=== PATIENT | male | born 1970 | race Caucasian/White ===

== ENCOUNTER 2023-12-29 07:44 | Outpatient (OUT) | payer BC, SELFPAY ==
[2023-12-29 08:25] LABS: Basophils Absolute Auto 0.1 10^3/uL (0.0-0.1); Basophils Percent Auto 0.9 % (0.2-2.0); Eosinophils Absolute Auto 0.2 10^3/uL (0.0-0.7); Eosinophils Percent Auto 2.3 % (0.9-7.0); Hematocrit 48.7 % (42.0-54.0); Immature Granulocytes Abs Auto 0.05 10^3/uL (0.00-0.03); Immature Granulocytes Pct Auto 0.8 % (0.0-0.5); Lymphocytes Absolute Auto 1.6 10^3/uL (1.2-3.8); Lymphocytes Percent Auto 24.2 % (20.5-60.0); Mean Corpuscular HGB Conc 32.9 g/dL (29.9-35.2); Mean Corpuscular Hemoglobin 31.1 pg (25.9-34.0); Mean Corpuscular Volume 94.7 fL (80.0-94.0); Mean Platelet Volume 8.9 fL (9.5-13.5); Monocytes Absolute Auto 0.9 10^3/uL (0.3-0.8); Monocytes Percent Auto 12.9 % (1.7-12.0); Neutrophils Absolute Auto 3.9 10^3/uL (1.4-6.5); Neutrophils Percent Auto 58.9 % (43.0-75.0); Platelet Count 222 10^3/uL (150-450); Red Blood Count 5.14 10^6/uL (4.70-6.10); Red Cell Distribution Width 12.3 % (11.0-15.0); White Blood Count 6.6 10^3/uL (4.0-11.0)
[2023-12-29 08:54] LABS: Alanine Aminotransferase 32 U/L (16-63); Albumin Globulin Ratio 0.9; Albumin Level 3.4 g/dL (3.4-5.0); Alkaline Phosphatase 69 U/L (46-116); Anion Gap 8.9; Aspartate Amino Transferase 67 U/L (15-37); BUN Creatinine Ratio 19.8; Bilirubin Total 2.5 mg/dL (0.2-1.0); Calcium 8.6 mg/dL (8.5-10.1); Carbon Dioxide 29.4 mmol/L (21.0-32.0); Chloride 107 mmol/L (98-107); Chol HDL Ratio 3.7; Cholesterol 217 mg/dL (<=200); Estimated GFR (African America >60 (>=60); Estimated GFR (Non-African Ame >60 (>=60); Globulin 3.6 g/dL; Glucose 134 mg/dL (74-106); HDL Cholesterol 59 mg/dL (40-60); Potassium 4.3 mmol/L (3.5-5.1); Sodium 141 mmol/L (136-145); Triglycerides 57 mg/dL (<=150); VLDL CHOLESTEROL 11.4 mg/dL
[2023-12-29 09:18] LABS: Prostate Specific Antigen Scrn 2.24 ng/mL (<=4.00)
== END 2023-12-29 07:45 | disposition home or self-care (01) ==
LOC: LAB 07:48
PROVIDERS: PCP Internal Medicine; Visit Provider Internal Medicine
DX: Z00.00 Encounter for general adult medical examination without abnormal findings (principal)
CPT/HCPCS: 36415; 80053; 80061; 85025; G0103

== ENCOUNTER 2024-03-31 09:52 | Outpatient (OUT) | payer BC, SELFPAY ==
[2024-03-31 10:12] LABS: Basophils Absolute Auto 0.1 10^3/uL (0.0-0.1); Basophils Percent Auto 1.4 % (0.2-2.0); Eosinophils Absolute Auto 0.2 10^3/uL (0.0-0.7); Eosinophils Percent Auto 1.9 % (0.9-7.0); Hemoglobin 16.6 g/dL (14.0-18.0); Immature Granulocytes Pct Auto 1.3 % (0.0-0.5); Lymphocytes Absolute Auto 1.9 10^3/uL (1.2-3.8); Lymphocytes Percent Auto 24.1 % (20.5-60.0); Mean Corpuscular HGB Conc 33.9 g/dL (29.9-35.2); Mean Corpuscular Hemoglobin 31.7 pg (25.9-34.0); Mean Corpuscular Volume 93.7 fL (80.0-94.0); Mean Platelet Volume 8.6 fL (9.5-13.5); Monocytes Absolute Auto 0.9 10^3/uL (0.3-0.8); Monocytes Percent Auto 11.6 % (1.7-12.0); Neutrophils Absolute Auto 4.7 10^3/uL (1.4-6.5); Neutrophils Percent Auto 59.7 % (43.0-75.0); Platelet Count 242 10^3/uL (150-450); Red Blood Count 5.23 10^6/uL (4.70-6.10); Red Cell Distribution Width 12.2 % (11.0-15.0); White Blood Count 7.9 10^3/uL (4.0-11.0)
[2024-03-31 11:44] LABS: Alanine Aminotransferase 40 U/L (16-63); Albumin Globulin Ratio 0.8; Albumin Level 3.3 g/dL (3.4-5.0); Alkaline Phosphatase 73 U/L (46-116); Anion Gap 12.7; Aspartate Amino Transferase 75 U/L (15-37); BUN Creatinine Ratio 16.3; Bilirubin Total 1.7 mg/dL (0.2-1.0); Calcium 9.1 mg/dL (8.5-10.1); Chloride 106 mmol/L (98-107); Estimated GFR (African America >60 (>=60 mL/min/1.73m^2); Estimated GFR (Non-African Ame >60 (>=60 mL/min/1.73m^2); Globulin 3.9 g/dL; Glucose 122 mg/dL (74-106); Potassium 4.7 mmol/L (3.5-5.1); Sodium 142 mmol/L (136-145); Total Protein 7.2 g/dL (6.4-8.2)
== END 2024-03-31 09:53 | disposition home or self-care (01) ==
LOC: LAB 09:52
PROVIDERS: PCP Internal Medicine; Visit Provider Internal Medicine
DX: R74.8 Abnormal levels of other serum enzymes (principal); I10 Essential (primary) hypertension
CPT/HCPCS: 36415; 80053; 85025

== ENCOUNTER 2025-02-16 08:09 | Outpatient (OUT) | payer BC, SELFPAY ==
--- OUTSIDE RECORDS SUMMARY | 2025-02-16 08:14 | XMS_ITS | CCD ---
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 history reviewed, Problem Description : past surgical history reviewed, Problem Comment : reviewed - no changes required, Problem Status : Resolved, [facility] Other Summary Purpose Family History Relationship Condition Age at Onset Recorded Date/T tammie Not Specified No pertinent family history Unknown Advance Directives Advance Directive Response Recorded Date/ Time Advance Directives No May 8:47am Advance Directive Response Recorded Date/ Time Advance Directives No May 9:47am Chief Complaint and Reason for Visit Chief Complaint m48.52xa Chief Complaint Admit Date URI July 11, 2024 1 0:51am Fluid in Ears August 23, 2024 9:3 6am Reason for Visit Admit Date Nicotine addiction July 11, 2024 1 0:51am Chronic obstructive pulmonar y disease with (acute) lower respiratory infection July 11, 2024 10:51am Acute exacerbation of chronic obstructiv e airways disease July 11, 2024 10:51am Chief Complaint Admit Date URI July 11, 2024 1 0:51am Fluid in Ears August 23, 2024 9:3 6am over due yearly (UC) September 27, 2024 10 :42am Reason for Visit Admit Date Nicotine addiction July 11, 2024 1 0:51am Chronic obstructive pulmonar y disease with (acute) lower respiratory infection July 11, 2024 10:51am Acute exacerbation of chronic obstructiv e airways disease July 11, 2024 10:51am Eustachian tube dysfunction August 23, 2024 9:36am Hypertension August 23, 2024 9:3 6am Subjective hearing loss August 23, 2024 9:36am Tinnitus of right ear August 23, 2024 9 :36am Ulcerative colitis September 27, 2024 10: 42am Additional Source Comments (unrecognized sect ion and content) No Status Records FoundNo Status Records FoundNo Status Records Found INFORMATION SOURCE (unrecogn ized section and content) DATE CREATED AUTHOR 04/02/2020 [facility] DATE CREATED AUTHOR AUTHOR'S ORGANIZ ATION 03/17/2022 [facility] DATE CREATED AUTHOR AUTHOR'S ORGANIZ ATION 05/15/2022 [facility] REASON FOR VISIT (unrecogniz ed section and content) PT HERE FOR FOLLOW UP COLONO SCOPYPATIENT HERE FOR 3 MONTH FOLLOW UPreferred by Dr. Esqueda Compression Fracture [id number] Care Teams (unrecognized sec tion and content) Team Status: Inactive Member Role Status Dates Víctor Esqueda DO Primary Care Provider Active Prem Palmer MD Attending Provider Active Team Status: Active Member Role Status Dates Víctor Esqueda DO Primary Care Provider Active Team Status: Inactive Member Role Status Dates Víctor Esqueda DO Primary Care Provide r, Attending Provider Active Start: July 11, 2024 End: July 11, 2024 Team Status: Inactive Member Role Status Dates Víctor Esqueda DO Primary Care Provide r, Attending Provider Active Start: August 23, 2024 End: August 23, 2024 Team Status: Inactive Member Role Status Dates Víctor Esqueda DO Primary Care Provider Active Start: September 27, 2024 End: September 27, 2024 Florentino Perea MD Attending Provider Active S tart: September 27, 2024 End: September 27, 2024 Goals (unrecognized section and content) Goals may be documented in a n alternate section FOR RECORDS PERTAINING TO PATIENTS WHO ARE OR HAVE BEEN ENROLLED IN A CHEMICAL DEPENDENCY/SUBSTANCEABUSE PROGRAM, SOME INFORMATION MAY BE OMITTED. This clinical summary was aggregated from multiple sources. Caution should be exercised in using it in the provision of clinical care. This summary normalizes information from multiple sources, and as a consequence, information in this document may materially change the coding, format and clinical context of patient data. In addition, data may be omitted in some cases. CLINICAL DECISIONS SHOULD BE BASED ON THE PRIMARY CLINICAL RECORDS. [email or web address] provides no warranty or guarantee of the accuracy or completeness of information in this document.
[2025-02-16 08:56] LABS: Cholesterol 227 mg/dL (<=200); HDL Cholesterol 52 mg/dL (40-60); Triglycerides 114 mg/dL (<=150); VLDL CHOLESTEROL 22.8 mg/dL
== END 2025-02-16 08:10 | disposition home or self-care (01) ==
LOC: LAB 08:10
PROVIDERS: PCP Internal Medicine; Visit Provider Internal Medicine
DX: Z00.00 Encounter for general adult medical examination without abnormal findings (principal); Z12.5 Encounter for screening for malignant neoplasm of prostate; I77.9 Disorder of arteries and arterioles, unspecified; N52.1 Erectile dysfunction due to diseases classified elsewhere
CPT/HCPCS: 36415; 80061; 84403; G0103

== ENCOUNTER 2025-02-16 08:13 | Outpatient (OUT) | payer BC, SELFPAY ==
--- OUTSIDE RECORDS SUMMARY | 2025-02-16 08:18 | XMS_ITS | Clinical Summary ---
Author Organization [facility] Address [address] [place] [address] Care Team Providers Care Supervisor Cartography Name Role Phone Unavailable Primary Care Provider Unavailabl e Social History Tobacco Use Types Packs/Day Years Used Date Smoking Tobacco: Never Assessed Sex and Gender Information Value Date Recorded Sex Assigned at Not on file Legal Sex Male 8:05 PM EDT Gender Identity Not on file Sexual Orientation Not on file Plan of Treatment Not on file Insurance [employer]
--- OUTSIDE RECORDS SUMMARY | 2025-02-16 08:18 | XMS_ITS | CCD ---
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 Facility:[facility] Start: 05-27-2021 End: 05-27-2021 ambulatory Víctor Esqueda Facility:[facility] Start: 05-13-2021 End: 05-14-[address] NONE LISTED REQUEST Facility:[facility] Start: 05-02-2021 End: 05-03-[address] VÍCTOR ESQUEDA Facility:[facility] Procedures Date Procedure Procedure Detail Performing Clinician Start: 04-28-2022 X-ray of cervical spine DO Víctor Esqueda Work Phone: Depression screening Florentino Perea Other Plan of Treatment Date Care Activity Detail Author Comprehensive metabo lic 1999 panel - Serum or Plasma [facility] enter [facility] Payers Date Payer Category Payer Unknown [id number] [id number] [id number] 1970 Unknown [id number] 2.16.84 [id number] 1970 Unknown [id number] 2.16.84 [id number] 1961 [facility] DZNAN [id number] 1961 Self-pay Unknown [id number] 2.16.84 [id number] Unknown [id number] 2.16.8 [id number] Unknown [id number] 2.16.8 [id number] Unknown [id number] 2.16.8 [id number] Social History Date Type Detail Facility Sex Assigned At [facility] Other Start: 05-29-2021 End: 10-12-2023 Tobacco smoking status NHIS Current some day smoker [facility] Start: 1970 Sex Assigned At Male F [facility] Start: 08-23-2024 End: 09-27-2024 Sex Male (finding) [facility] Clinical Notes 07-15-2021 to 07-11-2024 Note Date & Type Note Facility 07-11-2024 Evaluation note Diagnosis Onset Date Resolution Nicotine addiction acute 2024 10:51am Chronic obstructive pulmonary disease with (acute) lower respiratory infection noneactive July 112024 10:51am Acute exacerbation of chronic obstructive airways disease noneactive July 11 10:51am [facility] Work Phone: [phone]) 581-458901-27-2025 Evaluation note* Diagnosis Onset Date Resolution Status [...] Ulcerative colitis acute September 27, 2024 10:42am [facility] Work Phone: [phone]) 245-191801-04-2024 Evaluation note* Encounter Date Diagnosis Assessment Notes Treatment Notes Treatment Clinical Notes Jun, Ulcerative colitis (ICD-10 - K51.90) [facility] Other 11-22-2022 Evaluation note* Encounter Date Diagnosis [...] see me should a new problem arise. [facility] Other 05-03-2022 Evaluation note* Encounter Date Diagnosis Assessment Notes Treatment Notes Treatment Clinical Notes October, Ulcerative colitis (ICD-10 - K51.90) Continue Mesalamine without change Patient to call if symptoms flare Follow up in 1 year [facility] Other 01-31-2022 Evaluation note* Encounter Date Diagnosis Assessment Notes Treatment Notes Treatment Clinical Notes Jun, Proctitis (ICD-10 - K62.89) Jun, Ulcerative colitis (ICD-10 - K51.90) Resume Mesalamine 1.2gm 2 tabs daily Follow up in 3 months [facility] Other Evaluation noteNo assessment information available [facility] Work Phone: Evaluation noteNo InformationNort [employer] Other [employer] general Narrative - Reported* Type Description Date Surgical History skin graft, left forearm [facility] Other History general Narrative - Reported* Type Description Date Medical History hypertension Medical History colitis Surgical History skin graft, left forearm [facility] Other Histhwf general Narrative - Reported* Type Description Date [...] no changes required, Problem Status : Resolved, [facility] Other Summary Purpose Family History Relationship Condition [...] section and content) DATE CREATED AUTHOR 04/02/2020 [facility] DATE CREATED AUTHOR AUTHOR'S ORGANIZ ATION 03/17/2022 [facility] DATE CREATED AUTHOR AUTHOR'S ORGANIZ ATION 05/15/2022 [facility] REASON FOR VISIT (unrecogniz ed section and content) PT HERE FOR FOLLOW UP COLONO SCOPYPATIENT HERE FOR 3 MONTH FOLLOW UPreferred by Dr. Esqueda Comp[employer] [id number] Care Teams (unrecognized sec tion and content) [...] BE BASED ON THE PRIMARY CLINICAL RECORDS. [employer] provides no warranty or guarantee of the accuracy or completeness of information in this document.
[2025-02-16 08:42] LABS: Hematocrit 47.6 % (42.0-54.0); Hemoglobin 16.2 g/dL (14.0-18.0); Immature Granulocytes Abs Auto 0.05 10^3/uL (0.00-0.03); Immature Granulocytes Pct Auto 0.6 % (0.0-0.5); Lymphocytes Absolute Auto 1.8 10^3/uL (1.2-3.8); Mean Corpuscular HGB Conc 34.0 g/dL (29.9-35.2); Mean Corpuscular Hemoglobin 31.0 pg (25.9-34.0); Mean Corpuscular Volume 91.0 fL (80.0-94.0); Platelet Count 273 10^3/uL (150-450); Red Blood Count 5.23 10^6/uL (4.70-6.10); White Blood Count 7.8 10^3/uL (4.0-11.0)
[2025-02-16 08:58] LABS: Alanine Aminotransferase 39 U/L (16-63); Albumin Globulin Ratio 0.9; Albumin Level 3.5 g/dL (3.4-5.0); Alkaline Phosphatase 71 U/L (46-116); Anion Gap 15.6; Aspartate Amino Transferase 71 U/L (15-37); Blood Urea Nitrogen 12.0 mg/dL (7.0-18.0); Calcium 9.0 mg/dL (8.5-10.1); Carbon Dioxide 26.3 mmol/L (21.0-32.0); Chloride 105 mmol/L (98-107); Estimated GFR (African America >60 (>=60 mL/min/1.73m^2); Estimated GFR (Non-African Ame >60 (>=60 mL/min/1.73m^2); Globulin 4.1 g/dL; Glucose 131 mg/dL (74-106); Potassium 3.9 mmol/L (3.5-5.1); Sodium 143 mmol/L (136-145); Total Protein 7.6 g/dL (6.4-8.2)
== END 2025-02-16 08:14 | disposition home or self-care (01) ==
LOC: LAB 08:14
PROVIDERS: PCP Internal Medicine; Visit Provider Internal Medicine
DX: Z00.00 Encounter for general adult medical examination without abnormal findings (principal); K51.20 Ulcerative (chronic) proctitis without complications; Z12.5 Encounter for screening for malignant neoplasm of prostate; I77.9 Disorder of arteries and arterioles, unspecified; N52.1 Erectile dysfunction due to diseases classified elsewhere
CPT/HCPCS: 36415; 80053; 80061; 84403; 85025; 85652; 86140; G0103